=== PATIENT | female | born 1975 | race Caucasian/White ===

== ENCOUNTER 2017-03-20 09:51 | Emergency (ER) | payer BC ==
--- NOTE | 2017-03-20 10:10 | ER Document Report ---
ED General - General Time seen by provider: 09:55 Mode of Arrival: Ambulatory Information source: Patient, Relative - son TRAVEL OUTSIDE OF THE [place] IN LAST 30 DAYS: No - HPI Onset: Other - see HPI note Similar symptoms previously: Yes Recently seen / treated by doctor: No <CORRINE SONG - Last Filed: 03/20/17 10:44> <MIKE HERRERA - Last Filed: 03/20/17 11:56> - General Chief Complaint: Shortness Of Breath Stated Complaint: DIFFICULTY BREATHING Notes: Patient is a 42 year old female presenting to the ED for dizziness, weakness, bilateral leg pain, chest palpitations, headache, and nausea. Patient states his episode occurred yesterday around 14:00 and she had her children come pick her up from work to take her home. Patient's son states that she was very weak in her legs and she was "out of it." Patient states she felt like these symptoms were coming back today so she had her son take her to the ED. Patient states she feels foggy and is having trouble focusing. Patient denies any episodes of incontinence. Patient states she cannot put her "chin to her chest. " Patient states she takes zoloft, and has a history of fibromyalgia, degenerative and bulging disk disease, and sacroiliitis. Patient sees [facility] and has been given injections of steroids in her lower back for this. Patient has also received pain relieving injections for her chronic pain. Patient states she is weak allover which is different than her normal chronic pain. Patient is allergic to Sulfa drugs and tramadol. (CORRINE SONG) - Related Data Allergies/Adverse Reactions: Sulfa (Sulfonamide Antibiotics) Allergy (Intermediate, Verified 03/20/17 10:06) Nausea tramadol HCl [From Ultra] Allergy (Intermediate, Verified 03/20/17 10:06) Nausea Past Medical History - General Information source: Patient - Social History Smoking Status: Unknown if Ever Smoked Family History: None Patient has suicidal ideation: No Patient has homicidal ideation: No Neurological Medical History: Reports: Hx Migraine Musculoskeltal Medical History: Reports Hx Fibromyalgia, Reports Other - Degenerative disc disease, sacroiliitis Psychiatric Medical History: Reports: Hx Anxiety, Hx Depression Past Surgical History: Reports: Hx Abdominal Surgery - abdominoplasty, Hx Section - x2, Hx Hysterectomy - Immunizations Hx Diphtheria, Pertussis, Tetanus Vaccination: Yes <CORRINE SONG Last Filed: 03/20/17 10:44> Review of Systems - Review of Systems Constitutional: See HPI, Weakness EENT: No symptoms reported Cardiovascular: See HPI, Palpitations, Dizziness Respiratory: No symptoms reported Gastrointestinal: No symptoms reported Genitourinary: No symptoms reported Female Genitourinary: No symptoms reported Musculoskeletal: See HPI Skin: No symptoms reported Hematologic/Lymphatic: No symptoms reported Neurological/Psychological: See HPI, Weakness, Headaches -: Yes All other systems reviewed and negative <RENITACORRINE SAHRIF Last Filed: 03/20/17 10:44> Physical Exam - Vital signs Interpretation: Normal - General General appearance: Appears well, Alert In distress: Mild - HEENT Head: Normocephalic, Atraumatic Eyes: Normal Pupils: PERRL Mucous membranes: Moist - Respiratory Respiratory status: No respiratory distress Chest status: Nontender Breath sounds: Normal Chest palpation: Normal - Cardiovascular Rhythm: Regular Heart sounds: Normal auscultation Murmur: No - Abdominal Inspection: Normal Distension: No distension Bowel sounds: Normal Tenderness: Nontender Organomegaly: No organomegaly - Back Back: Normal, Nontender - Extremities General upper extremity: Normal inspection, Normal ROM, Normal strength General lower extremity: Normal inspection, Normal ROM, Normal strength - Neurological Neuro grossly intact: Yes Cognition: Normal Orientation: AAOx4 [place] Coma Scale Eye Opening: Spontaneous [place] Coma Scale Verbal: Oriented [place] Coma Scale Motor: Obeys Commands [place] Coma Scale Total: 15 Speech: Normal - Psychological Associated symptoms: Normal affect, Normal mood - Skin Skin Temperature: Warm Skin Moisture: Dry <CORRINE SONG - Last Filed: 03/20/17 10:44> <MIKE HERRERA - Last Filed: 03/20/17 11:56> - Vital signs Vitals: Temp Pulse Resp BP Pulse Ox 98.8 F 84 16 141/75 H 100 03/20/17 09:56 03/20/17 09:56 03/20/17 09:56 03/20/17 09:56 03/20/17 09:56 Course <CORRINE SONG - Last Filed: 03/20/17 10:44> - Laboratory Result Diagrams: 03/20/17 10:42 03/20/17 10:42 <MIKE HERRERA - Last Filed: 03/20/17 11:56> - Re-evaluation Re-evalutation: 03/20/17 11:55 Patient presents emergency Department chief complaint increased weakness and fatigue she has a history of fibromyalgia and chronic pain says she's been working entirely too much the past couple weeks. She just feels exhausted like she wants to lay down and go to bed she has a normal physical exam GCS of 15 no neurological deficits is ambulatory without any difficulty negative CT of the head chest x-ray and complete laboratory evaluation including cardiac enzymes. She says she's been under a lot of stress think she may have had a panic attack as well. At this time she is able to be discharged work excuse for primary care physician on Friday and discussed reasons for ED return sooner (MIKE HERRERA) - Vital Signs Vital signs: Temp Pulse Resp BP Pulse Ox 98.8 F 84 16 141/75 H 100 03/20/17 09:56 03/20/17 09:56 03/20/17 09:56 03/20/17 09:56 03/20/17 09:56 Discharge <CORRINE SONG - Last Filed: 03/20/17 10:44> <MIKE HERRERA - Last Filed: 03/20/17 11:56> - Discharge Clinical Impression: Stress at work Condition: Stable Disposition: HOME, SELF-CARE Additional Instructions: Fatigue Fatigue can be caused by many medical and emotional problems. Fatigue can be an early symptom of infection, or can be caused by chronic infection. It can be a symptom of metabolic diseases like diabetes, hypothyroidism, or anemia. It can result from sleep problems such as sleep apnea. Fatigue can be a symptom of depression. Overuse of alcohol or caffeine can cause fatigue. Many drugs can cause fatigue, either as a side effect or when withdrawing from the drug. Until the evaluation is complete, try to keep up your normal activities. Get regular sleep hours, but avoid oversleeping. Try to get regular exercise. Eliminate alcohol, caffeine, and any unnecessary drugs, herbs, or medicines ( discuss any changes in prescription medicines with your doctor). Contact the doctor if there is any change for the worse. Forms: Return to Work Scribe Attestation: 03/20/17 11:55 I personally performed the services described in the documentation reviewed the documentation recorded by my scribe in my presence and it accurately and completely records my words and actions (MIKE HERRERA) Scribe Documentation - Scribe Written by Scriblilian:: Corrine Song 03/20/17 10:43 acting as scribe for :: Buzz <CORRINE SONG - Last Filed: 03/20/17 10:44>
[2017-03-20 11:01] LABS: ABSOLUTE BASOPHILS # (AUTO) 0.1 10^3/uL (0.0-0.2); ABSOLUTE EOSINOPHILS # (AUTO) 0.1 10^3/uL (0.0-0.6); ABSOLUTE LYMPHOCYTES (AUTO) 2.9 10^3/uL (0.5-4.7); ABSOLUTE MONOCYTES (AUTO) 0.4 10^3/uL (0.1-1.4); ABSOLUTE NEUT (AUTO) 5.3 10^3/uL (1.7-8.2); BASOPHILS % (AUTO) 1.4 % (0-2); EOSINOPHILS % (AUTO) 0.7 % (0-6); HEMATOCRIT 42.1 % (36.0-47.0); HEMOGLOBIN 14.4 g/dL (12.0-15.5); HGB HCT DIFFERENCE 1.1; LYMPHOCYTES % (AUTO) 32.5 % (13-45); MEAN CORPUSCULAR HEMOGLOBIN 29.9 pg (27.0-33.4); MEAN CORPUSCULAR HGB CONC 34.3 g/dL (32.0-36.0); MEAN CORPUSCULAR VOLUME 87 fl (80-97); MONOCYTES % (AUTO) 4.6 % (3-13); RED BLOOD COUNT 4.83 10^6/uL (3.72-5.28); RED CELL DISTRIBUTION WIDTH 13.4 % (11.5-14.0); SEGMENTED NEUTROPHILS % (AUTO) 60.8 % (42-78); WHITE BLOOD COUNT 8.8 10^3/uL (4.0-10.5)
[2017-03-20 11:11] LABS: APPEARANCE,URINE CLEAR; BILIRUBIN,URINE NEGATIVE (NEGATIVE); GLUCOSE, URINE NEGATIVE (NEGATIVE); KETONES,URINE NEGATIVE (NEGATIVE); LEUKOCYTE ESTERASE,URINE NEGATIVE (NEGATIVE); NITRITE,URINE NEGATIVE (NEGATIVE); PROTEIN,URINE NEGATIVE (NEGATIVE); URINE SPECIFIC GRAVITY 1.013; UROBILINOGEN,URINE NEGATIVE mg/dL (<2.0)
[2017-03-20 11:24] LABS: ANION GAP 15 (5-19); BLOOD UREA NITROGEN 7 mg/dL (7-20); CALCIUM 9.7 mg/dL (8.4-10.2); CARBON DIOXIDE 23 mmol/L (22-30); CHLORIDE 106 mmol/L (98-107); CREATININE RESULT 0.52 mg/dL (0.52-1.25); GLUCOSE 101 mg/dL (75-110); POTASSIUM 4.6 mmol/L (3.6-5.0); SODIUM 143.6 mmol/L (137-145)
[2017-03-20 11:45] LABS: TROPONIN I < 0.012 ng/mL
[2017-03-20 12:14] VITALS: BP 110/77
== END 2017-03-20 12:10 | disposition home or self-care (01) ==
LOC: ER 09:51
DX: F43.9 Reaction to severe stress, unspecified (principal); R06.02 Shortness of breath; R42 Dizziness and giddiness; R53.1 Weakness; M79.604 Pain in right leg; M79.605 Pain in left leg; R00.2 Palpitations; R51 Headache
CPT/HCPCS: 36415; 70450; 71020; 80048; 81001; 83880; 84484; 85025; 99285

== ENCOUNTER 2017-04-20 06:06 | Emergency (ER) | payer BC ==
[2017-04-20] MEDS ORDERED: PREDNISONE 20 MG TABLET PO ONE (07:43)
--- NOTE | 2017-04-20 07:50 | ER Document Report ---
ED General - General Chief Complaint: Foot Pain Stated Complaint: LEFT FOOT PAIN Time Seen by Provider: 04/20/17 06:27 TRAVEL OUTSIDE OF THE [place] IN LAST 30 DAYS: No - HPI Patient complains to provider of: Left leg swelling left ankle swelling left leg pain Notes: Patient coming in for evaluation of left leg pain ongoing for a few weeks now progressively worsening. Patient states she does have severe fibromyalgia. Patient states no recent travel no history of blood clots or DVT. Patient states she has been taking her medication as prescribed Zoloft and possibly Lyrica. Patient states she does have an appointment to see her pain management doctor on the upcoming Friday. Denies fevers chills nausea vomiting denies trauma. - Related Data Allergies/Adverse Reactions: Sulfa (Sulfonamide Antibiotics) Allergy (Intermediate, Verified 03/20/17 10:06) Nausea tramadol HCl [From Ultram] Allergy (Intermediate, Verified 03/20/17 10:06) Nausea Past Medical History - Social History Smoking Status: Unknown if Ever Smoked Frequency of alcohol use: None Drug Abuse: None Family History: None, Reviewed & Not Pertinent Neurological Medical History: Reports: Hx Migraine Renal/ Medical History: Denies: Hx Peritoneal Dialysis Musculoskeltal Medical History: Reports Hx Fibromyalgia Psychiatric Medical History: Reports: Hx Anxiety, Hx Depression Past Surgical History: Reports: Hx Abdominal Surgery - abdominoplasty, Hx Section - x2, Hx Hysterectomy - Immunizations Hx Diphtheria, Pertussis, Tetanus Vaccination: Yes Review of Systems - Review of Systems Constitutional: No symptoms reported EENT: No symptoms reported Cardiovascular: No symptoms reported Respiratory: No symptoms reported Gastrointestinal: No symptoms reported Genitourinary: No symptoms reported Female Genitourinary: No symptoms reported Musculoskeletal: Muscle pain Skin: No symptoms reported Hematologic/Lymphatic: No symptoms reported Neurological/Psychological: No symptoms reported -: Yes All other systems reviewed and negative Physical Exam - Vital signs Vitals: Temp Pulse Resp BP Pulse Ox 97.9 F 63 16 102/64 98 04/20/17 06:15 04/20/17 06:15 04/20/17 06:15 04/20/17 06:15 04/20/17 06:15 Interpretation: Normal - General General appearance: Appears well, Alert - HEENT Head: Normocephalic, Atraumatic Eyes: Normal Pupils: PERRL - Respiratory Respiratory status: No respiratory distress Chest status: Nontender Breath sounds: Normal Chest palpation: Normal - Cardiovascular Rhythm: Regular Heart sounds: Normal auscultation Murmur: No - Abdominal Inspection: Normal Distension: No distension Bowel sounds: Normal Tenderness: Nontender Organomegaly: No organomegaly - Back Back: Normal, Nontender - Extremities General upper extremity: Normal inspection, Nontender, Normal color, Normal ROM , Normal temperature General lower extremity: Normal inspection, Tender - Patient does have tenderness to palpation of the left leg thigh and calf. Patient states swelling however there is no appreciable swelling there is no edema compared to the right., Normal color, Normal ROM, Normal temperature, Normal weight bearing. No: Mary Anne's sign - Neurological Neuro grossly intact: Yes Cognition: Normal Orientation: AAOx4 [place] Coma Scale Eye Opening: Spontaneous Denisse Coma Scale Verbal: Oriented [place] Coma Scale Motor: Obeys Commands Den[place] Coma Scale Total: 15 Speech: Normal Motor strength normal: LUE, RUE, LLE, RLE Sensory: Normal - Psychological Associated symptoms: Normal affect, Normal mood - Skin Skin Temperature: Warm Skin Moisture: Dry Skin Color: Normal Course - Re-evaluation Re-evalutation: 04/20/17 15:33 Bedside ultrasound was performed showing that the common femoral vein and popliteal vein had good flow and compressibility. This was followed down the leg. No signs of blood clot no DVT. Patient low risk for DVT. More likely patient has exacerbation of her chronic condition. We will start patient on steroids to display encouraged patient to follow-up with her primary care physician encouraged take Tylenol Motrin for other pain. 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 Your examination today is not consistent with any critical etiology no signs of blood clot no signs of infection. Please take the steroids as prescribed hopefully this will decrease inflammation also help out with your pain. you may also take Tylenol or Motrin for your pain. Prescriptions: Prednisone [Deltasone 20 mg Tablet] 60 mg PO DAILY 5 Days Referrals: LORAINE BOWMAN MD [Primary Care Provider] - Follow up in 3-5 days
[2017-04-20 08:15] VITALS: BP 102/61
== END 2017-04-20 08:13 | disposition home or self-care (01) ==
LOC: ER 06:06
DX: M79.1 Myalgia (principal); M79.605 Pain in left leg; M79.672 Pain in left foot; M79.89 Other specified soft tissue disorders
CPT/HCPCS: 99283; J7512

== ENCOUNTER → 2017-04-29 | Outpatient (CLI) | payer BC, OTHER ==
--- NOTE | 2017-04-29 12:36 | RADIOLOGY REPORT (SQ) ---
EXAM DESCRIPTION: MRI LUMBAR SPINE WITHOUT COMPLETED DATE/TIME: 04/29/2017 12:03 pm REASON FOR STUDY: LOW BACK PAIN WITH RADICULOPTHY M54.5 LOW BACK PAIN COMPARISON: None. TECHNIQUE: Sagittal and Axial imaging includes T1, T2, STIR and gradient echo sequences. Coronal T2/ HASTE imaging. LIMITATIONS: None. FINDINGS: VISUALIZED UPPER ABDOMEN: Limited evaluation. No acute or suspicious findings suggested. SEGMENTATION: No transitional anatomy. The lowest well-developed disc space is labeled L5-S1. ALIGNMENT: Anatomic. VERTEBRAE: Intact. BONE MARROW: Mild reactive fatty endplate changes at L5-S1. DISC SIGNAL: Decreased T2 weighted intervertebral disc signal at L4-5. Decreased T2 weighted interve rtebral disc signal with disc space loss of height at L5-S1. POSTERIOR ELEMENTS: Generally intact. No pars defect evident. HARDWARE: None in the spine. CORD AND CONUS: Normal in size and signal intensity. Conus at the L1-2 level. SOFT TISSUES: No aortic aneurysm seen. No bulky retroperitoneal adenopathy or mass. No paraspinal mas s or fluid. T11-12: At the upper edge of the field of view. No central stenosis. No foraminal narrowing. Mild bilateral facet hypertrophy. T12-L1: Unremarkable L1-L2: No significant spinal stenosis or exit foraminal stenosis. Minimal posterior disc bulging, mi ld bilateral facet hypertrophy. L2-L3: No significant spinal stenosis or exit foraminal stenosis. Mild bilateral facet hypertrophy. L3-L4: No significant spinal stenosis or exit foraminal stenosis. Minimal posterior disc bulging, mo derate bilateral facet and ligament hypertrophy. L4-L5: Mild diffuse posterior disc bulging is present with a small central protrusion. Moderate bila teral facet hypertrophy. Borderline central canal narrowing. Mild bilateral inferior foraminal narr owing without exiting L4 nerve root impingement. L5-S1: No significant spinal stenosis or exit foraminal stenosis. Mild bilateral facet hypertrophy. SACRUM: Visualized upper sacrum intact. OTHER: No other significant findings. IMPRESSION: Mild degenerative disc changes, most pronounced at L4-5 and L5-S1. No significant centr al or foraminal encroachment. TECHNICAL DOCUMENTATION: JOB ID: [id number]- All Rights Reserved
== END ==
LOC: RAD 11:05
PROVIDERS: ATTEND Nurse Practitioner Family
DX: M54.5 Low back pain (principal); M54.16 Radiculopathy, lumbar region
CPT/HCPCS: 72148

== ENCOUNTER 2019-01-28 16:07 | Emergency (ER) | payer BC ==
--- NOTE | 2019-01-28 18:16 | EKG REPORT ---
SEVERITY:- BORDERLINE ECG - SINUS RHYTHM PROBABLE LEFT ATRIAL ABNORMALITY : Confirmed by: Irish Hernandez MD 28-Jan-2019 18:16:03
--- NOTE | 2019-01-28 18:41 | ER Document Report ---
ED Medical Screen (RME) - General Chief Complaint: Chest Pain Stated Complaint: CHEST PAIN Primary Care Provider: MATT SHARP NP-C [Primary Care Provider] - Follow up as needed Mode of Arrival: Ambulatory Information source: Patient Notes: This is a 44-year-old female with a history of fibromyalgia, pneumonia, chronic bronchitis who presents to the emergency room with productive cough, some chest wall pain with movement, left shoulder pain with movement. Patient denies any fever or shortness of breath. Patient denies any slurred speech. Patient denies any motor weakness. TRAVEL OUTSIDE OF THE [place] IN LAST 30 DAYS: No - HPI Onset: Last week Onset/Duration: Gradual Quality of pain: Dull Severity: Moderate Pain Level: 3 Associated Symptoms: Chest pain, Cough (nonproductive). denies: Shortness of breath Exacerbated by: Movement Relieved by: Remaining still Similar symptoms previously: Yes Recently seen / treated by doctor: No - Related Data Smoking: Cigarettes Frequency of alcohol use: None Drug Abuse: None Allergies/Adverse Reactions: Sulfa (Sulfonamide Antibiotics) Allergy (Intermediate, Verified 03/20/17 10:06) Nausea tramadol HCl [From Ultram] Allergy (Intermediate, Verified 03/20/17 10:06) Nausea Past Medical History - General Information source: Patient - Social History Cigarette use (# per day): Yes - Half a pack per day Chew tobacco use (# tins/day): No Frequency of alcohol use: None Drug Abuse: Marijuana Lives with: Spouse/Significant other Family history: CAD, DM, Hypertension, Malignancy - breast, Other - osteoa rthritis, ddd, fibromyalgia - Past Medical History Cardiac Medical History: Reports: None Pulmonary Medical History: Reports: Hx Pneumonia Neurological Medical History: Reports: Hx Migraine Endocrine Medical History: Reports: None Renal/ Medical History: Denies: Hx Peritoneal Dialysis Malignancy Medical History: Reports: None GI Medical History: Reports: Hx Gastroesophageal Reflux Disease Musculoskeltal Medical History: Reports Hx Fibromyalgia Psychiatric Medical History: Reports: Hx Anxiety, Hx Depression Past Surgical History: Reports: Hx Abdominal Surgery - abdominoplasty, Hx Section - x2, Hx Hysterectomy - Immunizations Hx Diphtheria, Pertussis, Tetanus Vaccination: Yes Review of Systems - Review of Systems Constitutional: denies: Chills, Fever EENT: No symptoms reported Cardiovascular: See HPI Respiratory: See HPI Gastrointestinal: No symptoms reported Genitourinary: No symptoms reported Female Genitourinary: No symptoms reported Musculoskeletal: No symptoms reported Skin: No symptoms reported Hematologic/Lymphatic: No symptoms reported Neurological/Psychological: No symptoms reported Physical Exam - Vital signs Vitals: Temp Pulse Resp BP Pulse Ox 98.0 F 69 16 119/78 98 01/28/19 16:24 01/28/19 16:24 01/28/19 16:24 01/28/19 16:24 01/28/19 16:24 Notes: Physical exam: GENERAL: This is a 44-year-old female, alert and oriented x3, no acute distress HEAD: Atraumatic, normocephalic. EYES: Pupils equal round and reactive to light, extraocular movements intact, sclera anicteric, conjunctiva are normal. ENT: TMs normal, nares patent, oropharynx clear without exudates. Moist mucous membranes. NECK: Normal range of motion, supple without obvious mass or JVD. LUNGS: Breath sounds clear to auscultation bilaterally and equal. No wheezes rales or rhonchi. HEART: Regular rate and rhythm without murmurs, rubs or gallops. ABDOMEN: Soft, normoactive bowel sounds. No tenderness to palpation. No guarding, no rebound. No masses appreciated. EXTREMITIES: Normal range of motion, no pitting or edema. No clubbing or cya nosis. NEUROLOGICAL: Cranial nerves II through XII grossly intact. Normal speech, moving all extremities. Motor 5/5, sensory grossly intact, cerebellar (finger to nose) intact. PSYCH: Normal mood, normal affect. SKIN: Warm, Dry, normal turgor, no rashes or lesions noted. Course - Vital Signs Vital signs: Temp Pulse Resp BP Pulse Ox 98.0 F 69 16 119/78 98 01/28/19 16:24 01/28/19 16:24 01/28/19 16:24 01/28/19 16:24 01/28/19 16:24 - Diagnostic Test Radiology reviewed: Image reviewed, Reports reviewed - X-ray shows no infiltrates - EKG Interpretation by Me Rate: Normal Rhythm: NSR - EKG shows normal sinus rhythm with a ventricular rate of 66, no acute ST-T wave changes Doctor's Discharge - Discharge Clinical Impression: Bronchitis, Chest wall pain Condition: Stable Disposition: HOME, SELF-CARE Additional Instructions: As we discussed, your chest x-ray looked good today, there is no evidence of pneumonia. Your EKG look good. Your neurologic exam was normal. I do think much of this is due to inflammation of the chest wall and the musculoskeletal system. The Toradol as well as the Medrol Dosepak will help this. I would like you to stop smoking if possible. I do believe you are getting a chronic bronchitis and are at risk for COPD given your smoking history. Also smoking does increase your risk lifetime for strokes and heart attacks. Follow-up with Dr. Tatum or Dr. Hayden. I put the number on the chart for both of their offices. Return to the ER for worsening pain, shortness of breath or any concerns that you are getting worse. Prescriptions: Methylprednisolone [Medrol 4 mg Dosepack 21 Tab/Pack] 4 mg PO ASDIR PRN #21 tab.[id number] PRN Reason: Referrals: MATT SHARP, [facility] PROVIDER-C [Primary Care Provider] - Follow up as needed VERNON MILLER MD [ACTIVE STAFF] - Follow up as needed (This is the number for Dr. Tatum) YULIYA HAYDEN MD [ACTIVE STAFF] - Follow up as needed (This is the number for Dr. Hayden.)
--- NOTE | 2019-01-28 18:59 | RADIOLOGY REPORT (SQ) ---
EXAM DESCRIPTION: CHEST 2 VIEWS COMPLETED DATE/TIME: 01/28/2019 6:52 pm REASON FOR STUDY: cough COMPARISON: 03/20/2017 TECHNIQUE: Frontal and lateral radiographic views of the chest acquired. NUMBER OF VIEWS: Two view. LIMITATIONS: None. FINDINGS: LUNGS AND PLEURA: No pneumothorax. No consolidation or pleural effusion. MEDIASTINUM AND HILAR STRUCTURES: Stable. HEART AND VASCULAR STRUCTURES: Stable. BONES: No acute findings. HARDWARE: None in the chest. OTHER: No other significant finding. IMPRESSION: NO ACUTE FINDINGS. TECHNICAL DOCUMENTATION: JOB ID: [id number] [id number] [employer]- All Rights Reserved Reading location - IP/workstation name: [email or web address]
[2019-01-28] MEDS ORDERED: KETOROLAC TROMETHAMINE 60 MG/2 ML SDV IM ONE (19:11)
[2019-01-28 19:20] VITALS: BP 121/77
== END 2019-01-28 19:20 | disposition home or self-care (01) ==
LOC: ER 16:07
DX: J40 Bronchitis, not specified as acute or chronic (principal); R07.89 Other chest pain; F17.210 Nicotine dependence, cigarettes, uncomplicated; Z90.710 Acquired absence of both cervix and uterus; Z88.2 Allergy status to sulfonamides; Z88.6 Allergy status to analgesic agent
CPT/HCPCS: 93005; 99284; 96372; 71046; 93010; J1885